=== PATIENT | female | born 1990 ===

== ENCOUNTER 2019-10-04 15:00 | Inpatient (IN) | payer BC ==
[~2019-10-04] VITALS: Ht 165.1 cm; Wt 76.2 kg
--- NOTE | 2019-10-04 14:50 | NUR ---
MEHDI ZAPATA admitted to room 3316-1, with an admitting diagnosis of DEMISE, on 10/04/19 from HOME via AMBULATION, accompanied by S/O AND FAMILY .MEHDI ZAPATA introduced to surroundings, call light, bed controls, phone, TV, temperature control, lights, meal times, smoking policy, visitor policy, side rail policy, bathrooms and showers. Patient Rights given to patient in the handbook. MEHDI ZAPATA verbalizes understanding that [facility] is not responsible for the loss or damage to any personal effects or valuables that are kept in the patients posession during their hospitalization. The following Patient Care Plans were discussed with the PATIENT: Discharge Planning, PAIN MANAGEMENT, DELIVERY POC. MEHDI ZAPATA verbalizes understanding of Interdisciplinary Patient Education. Patient and/or family were informed about the Rapid Response Team and its purpose.
--- NOTE | 2019-10-04 15:10 | NUR ---
PASTORAL CARE NOTIFIED OF NEED FOR VIST.
[2019-10-04 15:34] LABS: BASOPHILS % (AUTO) 0 % (0-10); EOSINOPHILS # (AUTO) 0.1 10^3/uL (0.0-0.3); EOSINOPHILS % (AUTO) 0 % (0-10); HEMATOCRIT 35 % (35-52); LYMPHOCYTES # (AUTO) 1.3 X 10^3 (1.0-4.0); LYMPHOCYTES % (AUTO) 9 % (12-44); MEAN CORPUSCULAR HEMOGLOBIN 32 PG (25-34); MEAN CORPUSCULAR HGB CONC 34 G/DL (32-36); MEAN CORPUSCULAR VOLUME 94 FL (80-99); MEAN PLATELET VOLUME 9.6 FL (7.4-10.4); MONOCYTES # (AUTO) 1.3 X 10^3 (0.0-1.0); MONOCYTES % (AUTO) 9 % (0-12); NEUTROPHILS # (AUTO) 11.3 X 10^3 (1.8-7.8); NEUTROPHILS % (AUTO) 81 % (42-75); PLATELET COUNT 224 10^3/uL (130-400); RED CELL DISTRIBUTION WIDTH 13.2 % (10.0-14.5); WHITE BLOOD COUNT 13.9 10^3/uL (4.3-11.0)
--- NOTE | 2019-10-04 15:56 | NUR ---
Provided empathic listening and offered safe place for grief. The pt's mother, spouse, sister in law, brother, and grandparents present. Pt's sister in law said this is the 5th miscarriage in 2-3 years. Pt has no living children. The sister said her first miscarriage occurred at 9 weeks. Family and patient tearful and describing feelings of shock.
[2019-10-04 15:58] LABS: ALANINE AMINOTRANSFERASE 11 U/L (0-55); ALBUMIN 3.6 GM/DL (3.2-4.5); ALKALINE PHOSPHATASE 189 U/L (40-136); BILIRUBIN,TOTAL 0.3 MG/DL (0.1-1.0); BUN/CREATININE RATIO 8; CALCIUM 9.5 MG/DL (8.5-10.1); CARBON DIOXIDE 19 MMOL/L (21-32); CHLORIDE 105 MMOL/L (98-107); CREATININE SERUM 0.59 MG/DL (0.60-1.30); GFR ESTIMATED > 60; GLUCOSE 75 MG/DL (70-105); POTASSIUM 3.8 MMOL/L (3.6-5.0); SODIUM 137 MMOL/L (135-145); TOTAL PROTEIN 6.6 GM/DL (6.4-8.2); URIC ACID 3.7 MG/DL (2.6-7.2)
[2019-10-04 16:30] VITALS: BP 142/87
[2019-10-04] MEDS: D5 LR IV SOLUTION 1,000 ML IV SCH (16:30)
[2019-10-04] MEDS ORDERED: LACTATED RINGERS 1,000 ML IV ONE (17:10)
[2019-10-04] MEDS ORDERED: CITRIC ACID/SOB CIT (BICITRA) 30 ML UDC ONE (17:10)
[2019-10-04] MEDS ORDERED: FAMOTIDINE 20MG/2ML IV (PEPCID) ONE (17:10)
[2019-10-04] MEDS ORDERED: LACTATED RINGERS 1,000 ML IV PRN (17:10)
[2019-10-04] MEDS ORDERED: metroNIDAZOLE 500MG/100ML IVPB 100 ML ONE (17:10)
[2019-10-04] MEDS ORDERED: METOCLOPRAMIDE INJ 10 MG/2 ML (REGLAN) ONE (17:10)
[2019-10-04] MEDS ORDERED: ceFAZolin INJECTION 2,000 MG in WATER (STERILE) FOR INJECTION 10 ML IV ONE (17:15)
[2019-10-04] MEDS ORDERED: CATHETER FLUSH 10 ML SYR IV PRN (17:15)
[2019-10-04] MEDS ORDERED: FAMOTIDINE 20MG/2ML IV (PEPCID) IV ONE (17:15)
[2019-10-04] MEDS ORDERED: CITRIC ACID/SOB CIT (BICITRA) 30 ML UDC PO ONE (17:15)
[2019-10-04] MEDS ORDERED: metroNIDAZOLE 500MG/100ML IVPB 100 ML IV ONE (17:15)
[2019-10-04] MEDS ORDERED: METOCLOPRAMIDE INJ 10 MG/2 ML (REGLAN) IV ONE (17:15)
[2019-10-04] MEDS ORDERED: KETOROLAC 30 MG/ML VIAL ONE (17:22)
--- NOTE | 2019-10-04 17:22 | History & Physical ---
History and Physical Date Seen by Provider: Oct 04, 2019 Time Seen by Provider: 17:18 This patient is a 29-year-old A4 white female with an EDC of November 04, 2019 who was seen in clinic on this date with complaint of decreased movement. She was found to have demise at 35-4/7 weeks' gestation this is a product of IVF procedure. Patient denies rupture membranes or bleeding. She denies trauma. She reports that she had not felt the baby move since Friday which would have been 02 October. Allergies are none Medications are vitamins Medical social and surgical histories are per the antepartum record Lab work is as follows Laboratory Tests Test 10/04/19 15:00 Range/Units White Blood Count 13.9 H 4.3-11.0 10^3/uL Red Blood Count 3.74 L 4.35-5.85 10^6/uL Hemoglobin 12.0 11.5-16.0 G/DL Hematocrit 35 35-52 % Mean Corpuscular Volume 94 80-99 FL Mean Corpuscular Hemoglobin 32 25-34 PG Mean Corpuscular Hemoglobin Concent 34 32-36 G/DL Red Cell Distribution Width 13.2 10.0-14.5 % Platelet Count 224 130-400 10^3/uL Mean Platelet Volume 9.6 7.4-10.4 FL Neutrophils (%) (Auto) 81 H 42-75 % Lymphocytes (%) (Auto) 9 L 12-44 % Monocytes (%) (Auto) 9 0-12 % Eosinophils (%) (Auto) 0 0-10 % Basophils (%) (Auto) 0 0-10 % Neutrophils # (Auto) 11.3 H 1.8-7.8 X 10^3 Lymphocytes # (Auto) 1.3 1.0-4.0 X 10^3 Monocytes # (Auto) 1.3 H 0.0-1.0 X 10^3 Eosinophils # (Auto) 0.1 0.0-0.3 10^3/uL Basophils # (Auto) 0.0 0.0-0.1 10^3/uL Urine Protein 13 H 6-12 MG/DL Urine Creatinine 53 30-125 MG/DL Urine Protein/Creatinine Ratio 0.25 Sodium Level 137 135-145 MMOL/L Potassium Level 3.8 3.6-5.0 MMOL/L Chloride Level 105 98-107 MMOL/L Carbon Dioxide Level 19 L 21-32 MMOL/L Anion Gap 13 5-14 MMOL/L Blood Urea Nitrogen 5 L 7-18 MG/DL Creatinine 0.59 L 0.60-1.30 MG/DL Estimat Glomerular Filtration Rate > 60 BUN/Creatinine Ratio 8 Glucose Level 75 70-105 MG/DL Uric Acid 3.7 2.6-7.2 MG/DL Calcium Level 9.5 8.5-10.1 MG/DL Corrected Calcium 9.8 8.5-10.1 MG/DL Total Bilirubin 0.3 0.1-1.0 MG/DL Aspartate Amino Transf (AST/SGOT) 13 5-34 U/L Alanine Aminotransferase (ALT/SGPT) 11 0-55 U/L Alkaline Phosphatase 189 H 40-136 U/L Lactate Dehydrogenase 164 125-220 U/L Total Protein 6.6 6.4-8.2 GM/DL Albumin 3.6 3.2-4.5 GM/DL A torch panel is pending demise was confirmed by ultrasound in my clinic on this date HEENT exam is normal Neck is supple no lymphadenopathy no thyromegaly The abdomen is benign and gravid and nontender Extremities show clubbing or cyanosis. There is no Homans sign. Pelvic exam is deferred Assessment and plan demise at 35+ weeks gestation with no clear etiology. Patient has requested delivery versus labor induction. We have had a lengthy discussion regarding treatment options including observation versus trial of labor/induction versus delivery. Patient understands risks and benefits of all of these options. Patient further understands the risks recovery follow-up for a delivery. Patient understands that she may be allowed to labor for a subsequent but that she also could plan for repeat delivery for subsequent pregnancies. All of the questions for this patient and her partner and several family members were answered. Patient did request proceeding with delivery this evening Allergies and Home Medications Allergies Coded Allergies: No Known Drug Allergies (Unverified , 10/04/19) Patient Home Medication List Home Medication List Reviewed: Yes Clinical Quality Measures DVT/VTE Risk/Contraindication: Risk Factor Score Per Nursin RFS Level Per Nursing on Admit: 1=Low/No VTE PPX MAKSIM PEREZ MD Oct 04, 2019 17:22
[2019-10-04 17:33] LABS: BASOPHILS % (AUTO) 0 % (0-10); EOSINOPHILS # (AUTO) 0.1 10^3/uL (0.0-0.3); EOSINOPHILS % (AUTO) 0 % (0-10); HEMATOCRIT 33 % (35-52); HEMOGLOBIN 11.4 G/DL (11.5-16.0); LYMPHOCYTES # (AUTO) 1.1 X 10^3 (1.0-4.0); LYMPHOCYTES % (AUTO) 8 % (12-44); MEAN CORPUSCULAR HGB CONC 35 G/DL (32-36); MEAN CORPUSCULAR VOLUME 94 FL (80-99); MEAN PLATELET VOLUME 9.4 FL (7.4-10.4); MONOCYTES # (AUTO) 1.2 X 10^3 (0.0-1.0); MONOCYTES % (AUTO) 9 % (0-12); NEUTROPHILS # (AUTO) 11.2 X 10^3 (1.8-7.8); NEUTROPHILS % (AUTO) 83 % (42-75); PLATELET COUNT 230 10^3/uL (130-400); RED CELL DISTRIBUTION WIDTH 13.1 % (10.0-14.5); WHITE BLOOD COUNT 13.5 10^3/uL (4.3-11.0)
[2019-10-04 17:35] LABS: MEAN CORPUSCULAR HEMOGLOBIN 32 PG (25-34)
[2019-10-04] MEDS: LACTATED RINGERS 1,000 ML IV PRN ×2 (17:35→18:11)
[2019-10-04] MEDS ORDERED: OXYTOCIN/NORMAL SALINE 1,000 ML IV ONE (17:38)
[2019-10-04] MEDS ORDERED: ROPIVACAINE 5MG/ML 30ML VIAL ONE (17:44)
[2019-10-04] MEDS ORDERED: fentaNYL INJECTION 100 MCG/2 ML AMP ONE (17:45)
[2019-10-04 18:19] LABS: BAND NEUTROPHILS 2 %; LYMPHOCYTES % (MANUAL) 7 %; MONOCYTES % (MANUAL) 2 %; NEUTROPHILS % (MANUAL) 89 %; RBC MORPH NORMAL
[2019-10-04 18:52] VITALS: BP 110/69
[2019-10-04 19:00] VITALS: BP 110/69
[2019-10-04 19:10] VITALS: BP 121/86
[2019-10-04] MEDS ORDERED: HYDROmorphone 2 MG/ML VIAL (DILAUDID) IV ONE (19:15)
[2019-10-04] MEDS ORDERED: ONDANSETRON 4 MG/2 ML (SDV) Z0FRAN IVP PRN ×2 (19:15→21:15)
[2019-10-04 19:20] VITALS: BP 102/80
[2019-10-04 19:35] VITALS: BP_SYST 100; BP_SYST 112; BP_DIAS 63; BP_DIAS 79
[2019-10-04] MEDS ORDERED: D5 LR IV SOLUTION 1,000 ML IV SCH (21:02)
[2019-10-04] MEDS ORDERED: OXYTOCIN/NORMAL SALINE 500 ML IV SCH (21:02)
[2019-10-04] MEDS ORDERED: TETANUS,DIPTH,PERTUSS P/F (BOOSTRIX) 0.5 ML VIAL IM ONE (21:15)
[2019-10-04] MEDS ORDERED: MEASLES,MUMPS,RUBELLA 1 EA INJ SC ONE (21:15)
[2019-10-04] MEDS ORDERED: ALPRAZolam 0.25 MG (XANAX) TAB PO PRN (21:15)
[2019-10-04] MEDS: oxyCODONE/APAP 10/325MG (PERCOCET 10) TABLET PO PRN (22:31)
--- NOTE | 2019-10-04 23:20 | OPERATIVE REPORT ---
DATE OF SERVICE: 10/04/2019 The patient delivered a nonviable male due to intrauterine demise. The patient had been seen in clinic for decreased movement and found with no heart tones. The patient elected for . OPERATIVE PROCEDURE : primary low transverse delivery OPERATIVE DESCRIPTION: With the patient in the supine position under satisfactory spinal analgesia, she was prepped and draped in the usual fashion for abdominal surgery. Zambrano catheter was placed in the urinary bladder. A Pfannenstiel incision made through skin with scalpel, the patient's abdomen entered in the usual manner. Bladder retractor placed in position, clean scalpel used to make a 4 cm hysterotomy incision transversely across the lower uterine segment. Clear amniotic fluid with a slight odor was released on hysterotomy. The incision was extended bluntly and a nonviable male was delivered via the uterine incision. The infant did not have Apgars and no respiratory effort, no heart rate, no muscle tone. There was a triple nuchal cord that was released after delivery of the head. It was also noted that in amongst these three loops, there was a true knot that was very tightly tensioned. With the cord free, the knot loosen somewhat. The infant was delivered in the usual manner after releasing the cord and then the cord was clamped and cut and the infant passed from the field. The placenta delivered very promptly spontaneously Rodriguez. It was somewhat edematous and was at least partially detached already. The placenta was sent to pathology for permanent section. Cultures of the surface of the placenta were obtained for aerobes and anaerobes. The uterus was exteriorized and interior wiped clean with a wet laparotomy sponge. Uterine incision then closed with a running locked suture of 2-0 Vicryl. Hemostasis was complete. The uterus was returned to abdominal cavity. All blood clot and debris removed from the abdominal cavity. With sponge, needle counts correct and with hemostasis assured the anterior parietal peritoneum was closed with running suture of 2-0 Vicryl. Rectus muscles were closed with that suture as well. The rectus fascia was closed with 2-0 Vicryl, subcutaneous tissue with 2-0 Vicryl and skin was stapled. Sponge and needle counts were correct on completion of the procedure. Estimated blood loss was around 600 mL. The patient was transferred to the recovery room in stable condition. The had been cleaned and swaddled and given to the parents who held the baby at bedside for the balance of the and then took the baby to the recovery room with them. Job ID: [id number] DocumentID: [id number] Dictated Date: 10/04/2019 18:53:43 Software Analyst Date: 10/04/2019 23:20:14 Dictated By: MAKSIM PEREZ MD MTDD
[2019-10-05] MEDS: KETOROLAC 30 MG/ML VIAL IVP SCH ×2 (00:17→05:57)
[2019-10-05 00:18] VITALS: BP 102/66
[2019-10-05] MEDS: D5 LR IV SOLUTION 1,000 ML IV SCH (00:20)
[2019-10-05] MEDS: oxyCODONE/APAP 10/325MG (PERCOCET 10) TABLET PO PRN ×6 (02:00→23:50)
[2019-10-05 04:15] VITALS: BP 109/69
[2019-10-05] MEDS ORDERED: DOCUSATE SODIUM 100 MG (COLACE) CAP PO SCH ×2 (09:00)
[2019-10-05 09:10] VITALS: BP 107/61
--- NOTE | 2019-10-05 10:20 | NUR ---
Follow up visit: pt and her spouse resting. Offered compassionate presence and facilitated sacred space for grief.
--- NOTE | 2019-10-05 10:30 | NUR ---
Dr Bray here to see pt
--- NOTE | 2019-10-05 10:30 | Progress Note ---
Standard Progress Note Progress Notes/Assess & Plan Date Seen by a Provider: Oct 05, 2019 Time Seen by a Provider: 10:26 Progress/Assessment & Plan This patient is without complaint she is ambulating, voiding, tolerating oral intake well, and has good pain control. Vital Signs Date Time Temp Pulse Resp B/P (MAP) Pulse Ox O2 Delivery O2 Flow Rate FiO2 10/05/19 09:10 37.1 91 18 107/61 (76) 98 Room Air 10/05/19 04:15 36.4 83 16 109/69 (82) 97 Room Air 10/05/19 00:18 36.4 81 16 102/66 (78) 98 Room Air 10/04/19 19:35 36.8 112 16 112/63 (79) 98 Room Air 10/04/19 19:35 36.7 20 100/79 (86) 100 Room Air 10/04/19 19:35 Room Air 10/04/19 19:30 Room Air 10/04/19 19:20 20 102/80 (87) 100 Room Air 10/04/19 19:15 Room Air 10/04/19 19:10 20 121/86 (98) 100 Room Air 10/04/19 19:00 Room Air 10/04/19 19:00 20 110/69 (83) 100 Room Air 10/04/19 18:52 Room Air 10/04/19 18:52 36.7 20 110/69 (83) 100 Room Air 10/04/19 16:30 37.1 96 20 98 Room Air I & O 10/05/19 07:00 Intake Total 1610 ml Output Total 1415 ml Balance 195 ml Vital signs are stable. Patient is afebrile The abdomen is benign, surgical incision is clean dry and intact, fundus is firm and below the umbilicus and nontender Extremities show no clubbing or cyanosis, there is no Homans sign Assessment and plan post operative day number 1 status post primary delivery for the IUFD at 35-4/7 weeks' gestation - plan is for routine convalescence care with discharge home today or tomorrow as patient prefers Final Diagnosis 35 week primary delivery MAKSIM PEREZ MD Oct 05, 2019 10:30
--- NOTE | 2019-10-05 10:35 | Discharge Instructions ---
Discharge Instructions Discharge Medications New, Converted or Re-Newed RX: RX on Chart Patient Instructions Return to The Hospital For: As directed Activity & Diet Discharge Diet: No Restrictions Activity as Tolerated: No Orders-Post D/C & Referrals Follow Up Appt: If the patient elects discharge home today - RTC or Friday of this week at 930 a.m. staple removal : If the patient elects discharge home tomorrow RTC next Friday, October 13, 2019 at 930 a.m. for incision check. Call to make follow up appt. for patient in 4 weeks. Wound Care: Do not remove gumaro if patient is discharged home on postoperative day number 1 Remove gumaro, apply benzoin and steri strips if patient is discharged home on postoperative day number 2 Activity Per routine post instructions. Please call in RX to patient pharmacy. Diet as tolerated Patient may shower or tub bathe as desired. Continue home meds MAKSIM PEREZ MD Oct 05, 2019 10:35
--- NOTE | 2019-10-05 10:36 | Anesthesia-Regional Post-Op ---
Regional Patient Condition Mental Status: Alert, Oriented x3 Circulation: Same as Pre-Op Headache: Absent Sensation: Full Recovery Motor Block: Absent Post Op Complications Complications None Follow Up Care/Instructions Patient Instructions None needed. Anesthesia/Patient Condition Patient is doing well, no complaints, stable vital signs, no apparent adverse anesthesia problems. No complications reported per nursing. FREDO ROJO CRNA Oct 05, 2019 10:36
[2019-10-05] MEDS ORDERED: OXYC1TAB12 PO (10:38)
[2019-10-05] MEDS ORDERED: ZOLP5TAB PO (10:38)
[2019-10-05] MEDS ORDERED: IBUP-1780 PO (10:38)
[2019-10-05] MEDS ORDERED: DOCU100C37 PO (10:38)
[2019-10-05] MEDS ORDERED: ZOLPIDEM 5 MG (AMBIEN) TAB PO PRN (10:45)
--- NOTE | 2019-10-05 12:00 | NUR ---
Shower set up for pt, encouraged pt to ambulate
[2019-10-05 12:06] VITALS: BP 113/58
[2019-10-05] MEDS: IBUPROFEN 800 MG (MOTRIN) TAB PO SCH ×3 (12:08→23:50)
--- NOTE | 2019-10-05 13:00 | NUR ---
Infant footprints taken and provided to pt.
[2019-10-05 16:40] VITALS: BP 118/74
--- NOTE | 2019-10-05 17:30 | NUR ---
Pt notified of home en route for . Pt considering seeing infant again prior to leaving. Explained pt may see infant, but encouraged against it d/t decomposition and not wanting pt to have to see that. home compliance representative dealer to room to talk to pt prior to taking .
--- NOTE | 2019-10-05 18:00 | NUR ---
Again, encouraged pt to ambulate and shower. Pt reports adhesive still on abd from dressing, adhesive remover provided. Pt reports will shower after pain medication due in approx 1hr.
[2019-10-05 20:00] VITALS: BP 121/75
--- NOTE | 2019-10-05 22:30 | NUR ---
Pt. up to shower with nurse assist. Pt. voids with nurse assist and helped into shower. Pt. told to call out when she was done for help.
--- NOTE | 2019-10-05 22:45 | NUR ---
Pt. out of shower, dressed, and back to bed. Nurse helps pt to remove remaining adhesive around incision at this time.
[2019-10-06 02:15] VITALS: BP 105/63
[2019-10-06] MEDS: oxyCODONE/APAP 10/325MG (PERCOCET 10) TABLET PO PRN ×2 (06:02→09:50)
[2019-10-06 08:35] VITALS: BP 120/87
--- NOTE | 2019-10-06 08:37 | Progress Note ---
Standard Progress Note Progress Notes/Assess & Plan Date Seen by a Provider: Oct 06, 2019 Time Seen by a Provider: 08:34 Progress/Assessment & Plan This patient is without complaint she is ambulating, voiding, tolerating oral intake well, and has good pain control. Vital Signs Date Time Temp Pulse Resp B/P (MAP) Pulse Ox O2 Delivery O2 Flow Rate FiO2 10/05/19 09:10 37.1 91 18 107/61 (76) 98 Room Air 10/05/19 04:15 36.4 83 16 109/69 (82) 97 Room Air 10/05/19 00:18 36.4 81 16 102/66 (78) 98 Room Air 10/04/19 19:35 36.8 112 16 112/63 (79) 98 Room Air 10/04/19 19:35 36.7 20 100/79 (86) 100 Room Air 10/04/19 19:35 Room Air 10/04/19 19:30 Room Air 10/04/19 19:20 20 102/80 (87) 100 Room Air 10/04/19 19:15 Room Air 10/04/19 19:10 20 121/86 (98) 100 Room Air 10/04/19 19:00 Room Air 10/04/19 19:00 20 110/69 (83) 100 Room Air 10/04/19 18:52 Room Air 10/04/19 18:52 36.7 20 110/69 (83) 100 Room Air 10/04/19 16:30 37.1 96 20 98 Room Air I & O 10/05/19 07:00 Intake Total 1610 ml Output Total 1415 ml Balance 195 ml Vital signs are stable. Patient is afebrile The abdomen is benign, surgical incision is clean dry and intact, fundus is firm and below the umbilicus and nontender Extremities show no clubbing or cyanosis, there is no Homans sign Assessment and plan post operative day number 1 status post primary delivery for the IUFD at 35-4/7 weeks' gestation - plan is for routine convalescence care with discharge home today or tomorrow as patient prefers October 06, 2019 This patient is without complaint. Patient is requesting discharge home. Vital Signs Date Time Temp Pulse Resp B/P (MAP) Pulse Ox O2 Delivery O2 Flow Rate FiO2 10/06/19 02:15 36.2 77 16 105/63 (77) 98 Room Air 10/05/19 20:00 37.2 99 18 121/75 (90) 98 Room Air 10/05/19 16:40 37.3 101 18 118/74 (89) 98 Room Air 10/05/19 12:06 37.5 93 18 113/58 (76) 97 Room Air 10/05/19 09:10 37.1 91 18 107/61 (76) 98 Room Air VSS/AFB The abdomen is benign/the surgical incision is clean dry and intact Extremities show clubbing or cyanosis. There is no Homans sign. Assessment and plan postoperative day number 2 status post primary delivery at 35 weeks gestation with demise. Plan now is discharge home with follow-up in clinic Final Diagnosis 35 week primary delivery MAKSIM PEREZ MD Oct 06, 2019 08:37
--- NOTE | 2019-10-06 08:40 | NUR ---
dr dorman at bedside reviewing postop home care, d/c instructions. s/o at bedside. patient verbalized understanding. vitals taken. new orders received.
--- NOTE | 2019-10-06 10:15 | NUR ---
MEHDI ZAPATA demonstrates understanding of discharge instructions and accurately returns instructions upon questioning. Copy of Post-Discharge Instructions and Medication Discharge Instructions given to patient. MEHDI ZAPATA is able to manage continuing needs after discharge. Patients belongings returned to patient. Skin dry and intact; no breakdown noted. Patient discharged from 330- on 10-06-19 at 1015. MEHDI ZAPATA left floor via w/c, accompanied by staff.
== END 2019-10-06 10:15 | disposition home or self-care (01) | DRG 788 ==
LOC: LDRP 15:00
PROVIDERS: ADMIT Obstetrics & Gynecology; ATTEND Obstetrics & Gynecology
PROC: 10D00Z1 Extraction of Products of Conception, Low, Open Approach (ICD-10-PCS; principal; 2019-10-04 18:04)
DX: O36.4XX0 Maternal care for intrauterine death, not applicable or unspecified (principal); Z3A.35 35 weeks gestation of pregnancy; Z37.1 Single stillbirth
CPT/HCPCS: 36415; 80053; 82570; 83615; 84156; 84550; 85007; 85025; 85027; 86644; 86645; 86695; 86696; 86762; 86777; 86778; 86850; 86900; 86901; 87070; 87075; 87076; 87205; 88307